=== PATIENT | female | born 1995 | race Two or more races ===

== ENCOUNTER 2020-12-07 00:14 | Emergency (ER) | payer BC, MEDICAID ==
[~2020-12-07] VITALS: Ht 157.5 cm; Wt 46.0 kg
[2020-12-07 00:20] VITALS: BP 124/82
[2020-12-07] MEDS ORDERED: ACETAMINOPHEN 325MG TABLET PO ONE (00:45)
[2020-12-07] MEDS ORDERED: LIDOCAINE HCL 1% 20ML VIAL (Pyxis) INJ INFIL ONE (00:45)
[2020-12-07] MEDS ORDERED: BACITRACIN ZINC OINT UDPKT TOP ONE (00:45)
[2020-12-07] MEDS ORDERED: TOPUD MT (02:15)
== END 2020-12-07 02:27 | disposition home or self-care (01) ==
LOC: ER 00:14
DX: S61.011A Laceration without foreign body of right thumb without damage to nail, initial encounter (principal); F32.9 Major depressive disorder, single episode, unspecified; W25.XXXA Contact with sharp glass, initial encounter; Y93.89 Activity, other specified; Y92.89 Other specified places as the place of occurrence of the external cause; Y99.8 Other external cause status
CPT/HCPCS: 12001; 73130; 81025; 99283; J3490; Z7610

== ENCOUNTER 2021-04-10 15:31 | Emergency (ER) | payer MEDICAID ==
[~2021-04-10] VITALS: Ht 157.5 cm; Wt 48.0 kg
[~2021-04-10 15:31] MED LIST: TOPUD MT
[2021-04-10] MEDS ORDERED: MELA5TAB3 MT (17:34)
[2021-04-10 18:29] VITALS: BP 122/85
== END 2021-04-10 18:30 | disposition home or self-care (01) ==
LOC: ER 15:31
DX: F41.9 Anxiety disorder, unspecified (principal); I49.9 Cardiac arrhythmia, unspecified
CPT/HCPCS: 93005; 99283

== ENCOUNTER 2022-04-04 17:40 | Emergency (ER) | payer MEDICAID ==
[~2022-04-04] VITALS: Ht 160 cm; Wt 52.0 kg
[~2022-04-04 17:40] MED LIST changes: +MELA5TAB3 MT
[2022-04-04 17:51] VITALS: BP 127/68
== END 2022-04-04 20:22 | disposition home or self-care (01) ==
LOC: ER 17:40
DX: T16.2XXA Foreign body in left ear, initial encounter (principal); M79.5 Residual foreign body in soft tissue; X58.XXXA Exposure to other specified factors, initial encounter; Y93.89 Activity, other specified; Y92.89 Other specified places as the place of occurrence of the external cause
CPT/HCPCS: 69200; 99281; 99284